=== PATIENT | female | born 1975 | race Caucasian/White ===

== ENCOUNTER 2016-09-07 14:19 | Emergency (ER) | payer SELFPAY ==
--- NOTE | 2016-09-07 16:10 | RAD ---
Indication: Right ring finger. 3 views of the right ring finger demonstrates no fracture. No other bone or joint abnormality is identified. Soft tissue defect is noted on the dorsum of the proximal interphalangeal joint. No foreign body is identified. IMPRESSION: No fracture of the right ring finger is noted although soft tissue swelling is noted at the proximal interphalangeal joint.
[2016-09-07] MEDS ORDERED: ceFAZolin VIAL(*) 1 GM in NS 0.9% 50 ML* 50 ML IVPB ONE (16:44)
[2016-09-07] MEDS ORDERED: Tetan/Diph/Pertus SYR(Tdap)* 0.5 ML SYR(BOOSTRIX) use SYR IM ONE (16:46)
[2016-09-07] MEDS ORDERED: ceFAZolin VIAL(*) 1 GM VIAL ONE (16:51)
[2016-09-07 17:47] VITALS: BP 145/97
--- NOTE | 2016-09-07 17:57 | UC ---
Ravindra Forrest Aidan, scribed for Esperanza Delgado MD on 09/07/16 at 1654 . 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 The uncontaminated instrument went into the dorsum of her R 4th finger at 1400 today. Associated symptoms include some swelling. Pt states it "went in like butter" and almost went through and through. She can see the site on the palmar surface where it almost came through and through. During onset of the injury, she had some finger numbness that has subsided. Pt is unsure when her last tetanus shot was. - History Of Current Complaint Chief Complaint: UCHeadInjury Stated Complaint: HAND INJURY Time Seen by Provider: 09/07/16 15:42 Hx Obtained From: Patient Hx Last Menstrual Period: unknown ?: No Mechanism Of Injury: A clean, unused peesoreamer pierced the 4th finger (ring finger) on the right hand (see hpi). Onset/Duration: Sudden Onset, Lasting Hours, Still Present Severity Initially: Moderate Severity Currently: Moderate Pain Intensity: 6 Pain Scale Used: 0-10 Numeric Character Of Pain: Sharp Aggravating Factor(s): Other - nothing Alleviating: Nothing Associated Signs And Symptoms: Positive: Swelling, Bruising - palmar surface right 4th finger, Numbness/Tingling - that has subsided Related History: Dominant Hand Right - Risk Factors Compartment Syndrome Risk Factors: Pain - Allergies/Home Medications Allergies/Adverse Reactions: Allergies Allergy/AdvReac Type Severity Reaction Status Date / Time No Known Allergies Allergy Verified 03/05/16 11:22 Home Medications: Home Medications Acetaminophen [Eq Pain Reliever] 650 mg PO 09/07/16 [History] Escitalopram Oxalate [Lexapro 10 mg] 10 mg PO DAILY 09/07/16 [History Confirmed 09/07/16] PMH/Surg Hx/FS Hx/Imm Hx Previously Healthy: Yes - Surgical History Surgical History: Yes Surgery Procedure, Year, and Place: - Family History Known Family History: Positive: Hypertension - Social History Occupation: Employed Full-time - Dentist Lives: Alone Alcohol Use: Occasionally Substance Use Type: None Substance Use Comment - Amount & Last Used: Smoked cigarettes during , OB staff veterinarian and PCP are aware. Smoking Status (MU): Heavy Every Day Tobacco Smoker Type: Cigarettes Amount Used/How Often: daily Have You Smoked in the Last Year: Yes Household Exposure Type: Cigarettes - Immunization History Most Recent Influenza Vaccination: 02/26/16 Most Recent Tetanus Shot: unknown Most Recent Pneumonia Vaccination: none Review of Systems Constitutional: Negative Skin: Other - small puncture wound to the 4th finger on the right hand with associated swelling and pain Eyes: Negative ENT: Negative Respiratory: Negative Cardiovascular: Negative Gastrointestinal: Negative Genitourinary: Negative Motor: Negative Neurovascular: Negative Musculoskeletal: Arthralgia - finger pain at the 4th finger on the right hand Neurological: Negative Psychological: Negative All Other Systems Reviewed And Are Negative: Yes Physical Exam Triage Information Reviewed: Yes Appearance: Well-Appearing, Well-Nourished, Pain Distress Vital Signs: Initial Vital Signs Temp 98.3 F 09/07/16 14:24 Pulse 94 09/07/16 14:24 Resp 18 09/07/16 14:24 BP 132/88 09/07/16 14:24 Pulse Ox 98 09/07/16 14:24 Vital Signs Reviewed: Yes Eyes: Positive: Conjunctiva Clear ENT Exam: Normal ENT: Positive: Normal ENT inspection. Negative: Muffled/hoarse voice Neck: Positive: Supple Respiratory: Positive: Lungs clear, Normal breath sounds, No respiratory distress Cardiovascular: Positive: No Murmur, Pulses Normal, Brisk Capillary Refill, Other: - elevated blood pressure without diagnosis Musculoskeletal: Positive: Strength Intact, ROM Intact Neurological: Positive: Alert, Muscle Tone Normal Psychological Exam: Normal Skin Exam: Normal Skin: Positive: Other - puncture wound to right ring finger dorsum, distal to PIP, no red streaks, full ROM, no bony tenderness, neurovasc intact, soft tissue swelling. Diagnostics - Radiology FINGER X-RAY Xray Interpretation: No Acute Changes - IMPRESSION: No fracture of the right ring finger is noted although soft tissue swelling is noted at the proximal interphalangeal joint. Re-Evaluation - Re-Evaluation First Eval Re-Evaluation Time: 17:30 - On re-evaluation, it was clear that there were no side effects from the medication. Change: Unchanged Hand/Wrist Course/Dx - Course Course Of Treatment: 40 y/o female presents with a puncture wound to the 4th finger on the right hand. She has associated pain and swelling. Her blood pressure was 132/88, indicating slight hypertension. She will be informed and encouraged to seek follow up. Imaging reviewed. Her finger x-ray was negative. Pt was give IV kefzol, Tetanus update with TDAP, and prescribed Cephalexin. Pt will follow up with Dr. Overton, orthopedist. - Differential Dx/Diagnosis Differential Diagnosis/HQI/PQRI: Cellulitis, Foreign Body, Infection, Puncture Wound Provider Diagnoses: Puncture would to right 4th finger, Tetanus update with TDAP , tobacco use disorder, elevated blood pressure without diagnosis of HTN. - Physician Notifications Discussed Patient Care With: Maikel Overton - Orthopedic surgery Time Discussed With Above Provider: 16:48 - Dr. Delgado discussed the patient's care with Dr. Groves's answering service. At 1735, Dr. Rogers spoke with Dr. Delgado and agreed with treatment. He requests definite follow up on 2016. Instructed by Provider To: Have Pt Call For Appt. Discharge - Discharge Plan Condition: Stable Disposition: HOME Prescriptions: Cephalexin CAP* [Keflex 500 CAP*] 500 mg PO QID #40 cap Patient Education Materials: Diphtheria/Acellular Pertussis/Tetanus Vaccine ( By injection), Puncture Wound (ED) Referrals: Maikel Overton MD [Medical Doctor] - 4 Days (call tomorrow to arrange to be seen 09/11/16) Sweta Portillo MD [Primary Care Provider] - Additional Instructions: Your blood pressure was 132/88, which is slightly hypertensive. Recommended follow up with your primary care provider within 4 weeks for blood pressure monitoring and evaluation. Dr. Overton will see you on Sunday09/11/16. Call tomorrow to schedule that. See the orthopedist sooner, or go to the ER if you cannot flex or extend that 4th finger, or if you have red streaks up your arm. The documentation as recorded by the Ravindra pedroza Aidan accurately reflects the service I personally performed and the decisions made by , Esperanza Delgado MD.
== END 2016-09-07 17:55 | disposition home or self-care (01) ==
LOC: UCEAST 14:19
DX: S61.234A Puncture wound without foreign body of right ring finger without damage to nail, initial encounter (principal); W26.8XXA Contact with other sharp object(s), not elsewhere classified, initial encounter; Y93.9 Activity, unspecified; Y92.531 Health care provider office as the place of occurrence of the external cause; Y99.0 Civilian activity done for income or pay; R03.0 Elevated blood-pressure reading, without diagnosis of hypertension; Z23 Encounter for immunization; F17.210 Nicotine dependence, cigarettes, uncomplicated
CPT/HCPCS: 73140; 90471; 90715; 96365; 99212; G0463; J0690

== ENCOUNTER 2016-10-10 09:41 | Emergency (ER) | payer BC ==
[2016-10-10 09:47] VITALS: BP 179/96
[2016-10-10] MEDS ORDERED: cefTRIAXone VIAL(*) 1,000 MG VIAL IM ONE (10:26)
[2016-10-10] MEDS ORDERED: Lidocaine 1% MPF* 2 ML VIAL ONE (10:31)
--- NOTE | 2016-10-10 10:31 | UC ---
Dental HPI - HPI Summary HPI Summary: 40 female presents to with complaints of a dental abscess/infection that has been ongoing and worsening over the past couple of days. 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 Thinks the infection is spreading into sinus. Has dental implant that needs to come out. Took left over augmentin today which did give some relief. No fever/chills. No other complaints besides some sinus congestion. Had a sinus infection untreated a couple of weeks ago and she thinks that worsened her dental complications causing this. - History of Current Complaint Chief Complaint: UCDentalProblem Stated Complaint: SINUS COMPLAINT Time Seen by Provider: 10/10/16 10:01 Hx Obtained From: Patient Hx Last Menstrual Period: 10/04/16 ?: No Onset/Duration: Sudden Onset, Lasting Days Severity: Moderate Pain Intensity: 4 Pain Scale Used: 0-10 Numeric Aggravating: Chewing Alleviating: Other (see comments) - standing due to gravity and augmentin x 1 dose Related History: Previous Dental Care on Same Tooth - Allergies/Home Medications Allergies/Adverse Reactions: Allergies Allergy/AdvReac Type Severity Reaction Status Date / Time No Known Allergies Allergy Verified 10/10/16 09:47 Home Medications: Home Medications Amoxicillin/Clavulanate TAB* [Augmentin TAB 875*] 1 tab PO BID 10/10/16 [ History Confirmed 10/10/16] Gabapentin CAP(*) [Neurontin 100 mg CAP(*)] 1 tab PO DAILY 10/10/16 [History Confirmed 10/10/16] PMH/Surg Hx/FS Hx/Imm Hx - Additional Past Medical History Additional PMH: Denies HTN, DM and asthma - Surgical History Surgical History: Yes Surgery Procedure, Year, and Place: - Family History Known Family History: Positive: None, Hypertension Family History: R & n/C - Social History Alcohol Use: Occasionally Substance Use Type: None Substance Use Comment - Amount & Last Used: Smoked cigarettes during , OB staff trainer and PCP are aware. Smoking Status (MU): Heavy Every Day Tobacco Smoker Type: Cigarettes Amount Used/How Often: 1ppd Have You Smoked in the Last Year: Yes Household Exposure Type: Cigarettes - Immunization History Most Recent Influenza Vaccination: 02/26/16 Most Recent Tetanus Shot: unknown Most Recent Pneumonia Vaccination: none Review of Systems Constitutional: Negative Skin: Negative ENT: Dental Pain - swelling, Sinus Congestion Respiratory: Negative Cardiovascular: Negative All Other Systems Reviewed And Are Negative: Yes Physical Exam Triage Information Reviewed: Yes Appearance: Well-Appearing, No Pain Distress, Well-Nourished Vital Signs: Initial Vital Signs Temp 98.1 F 10/10/16 09:42 Pulse 95 10/10/16 09:42 Resp 14 10/10/16 09:42 BP 179/96 10/10/16 09:42 Pulse Ox 100 10/10/16 09:42 elevated BP, re-taken. states her BP is always this high when at doctors. Vital Signs Reviewed: Yes Eyes: Positive: Conjunctiva Clear ENT: Positive: Hearing grossly normal, Pharynx normal, Nasal congestion, TMs normal. Negative: Tonsillar swelling, Tonsillar exudate, Trismus, Muffled/ hoarse voice Dental: Positive: Percussion Tenderness @ - maxillary b/l worse on right, Dental Fracture @, Abscess @ - right upper molar swelling in cheek, dental implant noted, tender to touch warm, no specific palpable abscess noted, Cervical Lymphadenopathy Neck: Positive: Supple, Nontender Respiratory: Positive: Chest non-tender, Lungs clear, Normal breath sounds, No respiratory distress, No accessory muscle use Cardiovascular: Positive: RRR, No Murmur, Pulses Normal Musculoskeletal: Positive: Strength Intact, ROM Intact Neurological: Positive: Alert Psychological: Positive: Normal Response To Family, Age Appropriate Behavior Skin Exam: Normal Dental Complaint Course/Dx - Course Course Of Treatment: did not want pain management at this time. 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 Given IM ceftriaxone and augmentin to take at home. aware of worsening signs and symptoms. have dental implant removed on sunday. Follow up. cool compresses, NSAIDs. - Differential Dx/Diagnosis Differential Diagnosis/Dx: Dental Abscess, Dental Caries, Fractured Tooth, Pharyngitis, Other - sinusitis Provider Diagnoses: dental abscess, dental infection, sinus infection Discharge - Discharge Plan Condition: Stable Disposition: HOME Prescriptions: Amoxicillin/Clavulanate TAB* [Augmentin TAB 875*] 875 mg PO BID #20 tab predniSONE TAB* [Deltasone TAB*] 20 mg PO DAILY #5 tab Patient Education Materials: Dental Abscess (ED), Sinusitis (ED) Referrals: Sweta Portillo MD [Primary Care Provider] - Additional Instructions: Take medications as prescribed starting tomorrow 10/11/16. Recommend taking prednisone in the morning to prevent insomnia. Advil/Aleve for pain and inflammation. Ice. Follow up with your dentist. Symptoms worsen or do not improve (fever/chills, increased pain/swelling) please return.
[2016-10-10] MEDS ORDERED: cefTRIAXone VIAL(*) 250 MG VIAL IM ONE (10:36)
== END 2016-10-10 10:55 | disposition home or self-care (01) ==
LOC: UCEAST 09:41
DX: K04.7 Periapical abscess without sinus (principal); J32.9 Chronic sinusitis, unspecified; Z72.0 Tobacco use
CPT/HCPCS: 96372; 99212; G0463; J0696

== ENCOUNTER 2017-06-11 20:09 | Emergency (ER) | payer BC, OTHER ==
--- OUTSIDE RECORDS SUMMARY | 2017-06-11 20:28 | XMS REPORT ---
:1975 External Reference #:[id number] Author Organization [facility] Address [address] [place] [address] Phone [phone] Care Team Providers Name Role Phone [facility] M[facility] Care Team Information Rn Telephonic Unavailable Payers Type Date Identification Numbers Payment Provider Subscriber Commercial Policy Number: [id number] / [employer] Nidhi Carcamo PayID: [id number] [address] [address] [place] [address] Problems Description No Information Family History Date Family Member(s) Problem(s) Comments General Hypertension General Alzheimer's Disease Father Hypertension Father 69 Mother Hypertension Mother 68 Children 1 Siblings None Social History Type Date Description Comments Work Status Full-Time Employment ETOH Use Drinks 2 Alcoholic Beverages Per Week Smoking Heavy tobacco smoker (more than 10 cigarettes/day) Recreational Drug Use Denies Drug Use Daily Caffeine Consumes on average 2 cups of regular coffee per day Allergies, Adverse Reactions, Alerts Date Description Reaction Status Severity Comments 05/21/2017 NKDA active Medications Medication Date Status Form Strength Qnty SIG Indications Ordering Provider Advil Active Tablets 200mg 2 by mouth M25.559 Ari, Ahmad 8 twice a day M., M.D. as needed M54.5 M79.7 Multivitamin Adults 05/21/2017 Active Tablets 1 by mouth M25.559 Ari, Ahmad every day M., M.D. M79.7 Neurontin 05/21/2017 Active Capsules 300mg 90caps 1 cap by M25.559 Giselle Chapmanmad mouth three M., M.D. times a day M54.5 M79.7 Meloxicam 05/21/2017 Active Tablets 7.5mg 60tabs take one M25.559 Ari , tablet by jossy Flores M.D. twice a day Escitalopram Active Tablets 10mg F41.9 Unknown Oxalate G47.00 Vital Signs Date Vital Result Comment 05/21/2017 BP Systolic 132 mmHg BP Diastolic 72 mmHg Height 61 inches 5'1" Weight 149.00 lb BMI (Body Mass Index) 28.2 kg/m2 Heart Rate 88 /min Respiratory Rate 18 /min Results Description No Information Procedures Date CPT Code Description Status 05/21/2017 05113 Visual Screening Test Completed 05/21/2017 69371 Audiometry, Bekesy, Screening Completed Encounters Type Date Location Provider CPT E/M Dx Office Visit 05/21/2017 8:00a [place] [facility] M.D. 65571 Z00.01 M25.559 M79.606 M54.5 M54.2 M25.569 M25.519 L20.9 J30.9 J44.9 F17.210 I10 E78.2 F41.9 G47.00 H52.4 Z12.31 M79.7 R51 Plan of Care 05/21/2017 - Saji Chapman M.D.Z00.01 Encounter for general adult medical exam w abnormal findingsComments:GOOD NUTRITION /EXERCISEDENTAL/ FLOSSING/ SELF CAREDROWNING/ SUN SAFETYSEAT BELT/ DRIVING SAFETYSPORT BIKE/ HELMET USESPORTS/ INJURY PREVENTIONVIOLENCE PREVENTION/ GUN SAFETYPARENTING ADVICE"SAFE AT HOME "SEX EDUCATION/ COUNSELINGBREAST/ TESTICULAR SELF EXAMEDUCATION GOALS/ ACTIVITIESLIMIT TV/ INTERNETUSETOBACCO/ ALCOHOL/ DRUGS/ INHALANTSPEER REFUSAL SKILLSSOCIAL INTERACTIONFAMILY FUNCTIONINGSELF CONTROLDEPRESSION/ ANXIETYNEXT APPOINTMENTYEARLY PHYSICAL WELLNESS EVALUATION F/U WITH OB /INTERVENTIONAL RADIOLOGIST FOR PAP RTC FOR FBWM25.559 Pain in unspecified hipNew Medication:Advil 200 mgMultivitamin AdultsNeurontin 300 mgMeloxicam 7.5 mgComments:EXERCISE/HEAT/MESSAGETYLENOL OR MOTRIN PRNAVOID HEAVY LIFTINGWT LOSSDUR YOZAYKTU06.606 Pain in leg, unspecifiedComments:TYLENOL OR MOTRIN PRN EXERCISE/HEAT/MESSAGE DUR GYAFOLIS62.5 Low back painNew Medication:Advil 200 mgNeurontin 300 mgComments: EXERCISE/HEAT /MESSAGEAVOID HEAVY LIFTING WT LOSSTYLENOL OR MOTRIN PRN DUR CHECKEDFollow up:1 kanjsB65.2 CervicalgiaComments:EXERCISE/HEAT /MESSAGEAVOID HEAVY LIFTING WT LOSSTYLENOL OR MOTRIN PRN DUR PDDBEIYK87.569 Pain in unspecified kneeComments:EXERCISE/HEAT /MESSAGEAVOID HEAVY LIFTING WT LOSSTYLENOL OR MOTRIN PRN DUR EFTYELPX00.519 Pain in unspecified shoulderComments:EXERCISE/HEAT /MESSAGE AVOID HEAVY LIFTINGTYLENOL OR MOTRIN PRN DUR MKVHDIKL25.9 Atopic dermatitis, unspecifiedComments:SKIN CARE INSTRUCTIONS LOTION OR BABY OIL 2-3 APPLICATION PER DAYUSE MOISTURIZING SOAPAVOID PROLONGED WATER EXPOSUREAVOID USING HOT WATER IN FAMQDTC16.9 Allergic rhinitis, unspecifiedComments:INCREASE PO FLUID USE ANTIHISTAMINE PRN SECOND HAND SMOKING AVOIDANCE SMOKING GUHBYPTPMW10.9 Chronic obstructive pulmonary disease, unspecifiedComments:INCREASE PO FLUIDRESTSMOKING WENUUOUIFW55.210 Nicotine dependence, cigarettes, uncomplicatedComments:SMOKING CESSATION COUNCELLING DISCUSSION RE: CESSATION OPTIONSPT INFORMED RE: NICOTINE PATCHES, CHANTIX, AND VCVBQZ90 Essential (primary) hypertensionComments:CHECK BP TIW ( PRN)DIET AND FLUID COUNSELING LOW SODIUM DIETWT LOSSF/U LAB SMOKING OVXOQAXZTZ99.2 Mixed hyperlipidemiaComments:DIET REVIEWED CONTINUE DIETWT LOSSF/ U LAB FBWF41.9 Anxiety disorder, unspecifiedComments:COUNCELLING AND REASSURANCE RELAXATION TECHNIQUES DISCUSSEDCOUNSELED RE: STRESSORS IN LIFE AVOID ALLENERGY/HIGH CAFFEINE DRINKS DUR KVVWFMTO03.00 Insomnia, unspecifiedComments:COUNCELLING AND REASSURANCE RELAXATION TECHNIQUES DISCUSSED COUNSELED RE: STRESSORS IN LIFE TYLENOLPM OR MOTRIN PM PRN DUR FPGQSEDE03.4 PresbyopiaComments:USE GLASSES/CONTACTSF/U WITH DRUKUIPWUNNAQA40.31 Encntr screen mammogram for malignant neoplasm of breastNew Xrays:Mammography Screening , Bilateral; 2-View Each BreastComments:F/U AFTER TESTM79.7 FibromyalgiaNew Medication:Advil 200 mgMultivitamin AdultsNeurontin 300 mgComments:EXERCISE/HEAT /MESSAGETYLENOL OR MOTRIN PRNF/U WITH REHUMATOLOGY PRNDUR [id number] HeadacheComments:TYLENOL OR MOTRIN PRN
[2017-06-11] MEDS ORDERED: Vancomycin(*) 1,000 MG in NS 0.9% 250 ML* 250 ML IVPB ONE (22:08)
[2017-06-11 22:25] LABS: Hematocrit 38 % (35-47); Hemoglobin 13.2 g/dl (12.0-16.0); Mean Corpuscular HGB Conc 35 g/dl (31-36); Mean Corpuscular Hemoglobin 35 pg (27-31); Mean Corpuscular Volume 102 fL (80-97); Mean Platelet Volume 7.8 um3 (7.4-10.4); Platelet Count 317 10^3/ul (150-450); Red Blood Count 3.74 10^6/ul (4.0-5.4); Red Cell Distribution Width 13 % (10.5-15); White Blood Count 15.4 10^3/ul (3.5-10.8)
[2017-06-11] MEDS ORDERED: Vancomycin per Pharmacy* NOTE FOLLOW UP PRN (22:36)
[2017-06-11 22:43] LABS: EGFR Non-African American 84.7 (>60)
[2017-06-11 22:53] LABS: ABS Basophils 0.1 10^3/ul (0-0.2); ABS Eosinophils 0.1 10^3/ul (0-0.6); ABS Monocytes 1.4 10^3/ul (0-0.8); ABS Neutrophils 11.9 10^3/ul (1.5-7.7); ABS Nucleated RBC 0 10^3/ul; Eosinophil % 0.9 % (0-6); Lymphocyte % 12.7 % (25-47); Nucleated Red Blood Cells % 0.1
[2017-06-11] MEDS ORDERED: oxyCODONE/Acetamin 5/325 MG* TAB PO ONE (23:03)
[2017-06-12] MEDS ORDERED: NS 0.9% 1000 ML* 1,000 ML IV ONE (00:45)
[2017-06-12] MEDS ORDERED: Ketorolac INJ* 30 MG/ML 1 ML VIAL IV PUSH ONE (00:45)
[2017-06-12 01:33] VITALS: BP 125/87
--- NOTE | 2017-06-12 07:50 | RAD ---
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 FINDINGS: The study is limited by the lack of intravenous contrast. This limits evaluation of the solid organs and vasculature. BONE DENSITY: Normal. BONES: There is no displaced fracture. JOINTS: There is no arthropathy. MUSCULATURE: Unremarkable ALIGNMENT: There is no dislocation. SOFT TISSUES: There is no appreciable inflammatory change of the perianal or perirectal fat. There is mild soft tissue thickening along the right side of the anus best seen on axial image 90. The pelvic organs are unremarkable for patient age and technique. OTHER FINDINGS: None. IMPRESSION: 1. THERE IS MILD SOFT TISSUE THICKENING ALONG THE RIGHT PERIRENAL REGION, WHICH MAY REPRESENT THE RESIDUAL OF THE PERIANAL FISTULA NOTED IN HISTORY, THOUGH THIS IS INCOMPLETELY EVALUATED ON THE CURRENT EXAMINATION, AND A SMALL ABSCESS MAY GIVE A SIMILAR APPEARANCE. RECOMMEND CORRELATION WITH DIRECT VISUALIZATION. 2. THERE IS NO INFLAMMATORY CHANGE OF THE PERIANAL OR PERIRECTAL FAT TO SUGGEST AN ACUTE INFLAMMATORY PROCESS.
--- NOTE | 2017-06-13 18:26 | ED ---
Lorenzo Forrest Angela, scribed for Param Davenport MD on 06/11/17 at 2235 . 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 She notes her swelling and pain was of gradual onset that is progressively worsening. Pt additionally reports low grade fevers at home. Denies any skin rupture or pus drainage. Denies radiation of pain any where else. Pt notes her pain is not relieved by Cipro taken at home. - History of Current Complaint Chief Complaint: EDRashSkinAbscess Stated Complaint: ABSCESS Hx Obtained From: Patient Hx Last Menstrual Period: 10/04/16 Onset/Duration: Started Days Ago, Still Present Skin Exposure Onset/Duration: Days Ago Timing: Lasting Days Current Severity: Severe Pain Intensity: 8 Pain Scale Used: 0-10 Numeric Skin Location: Other: - right perirectal area Character: Swelling, Pain, Redness Aggravating Symptom(s): Nothing Alleviating Symptom(s): Nothing Associated Signs & Symptoms: Fever - low grade - Allergy/Home Medications Allergies/Adverse Reactions: Allergies Allergy/AdvReac Type Severity Reaction Status Date / Time No Known Allergies Allergy Verified 06/11/17 21:09 PMH/Surg Hx/FS Hx/Imm Hx Musculoskeletal History: Reports: Other Musculoskeletal History - fibromyalgia Psychiatric History: Reports: Hx Anxiety, Hx Depression - Surgical History Surgery Procedure, Year, and Place: - Immunization History Date of Influenza Vaccine: has not recieved Infectious Disease History: No Infectious Disease History: Denies: Traveled Outside the [place] in Last 30 Days - Family History Known Family History: Positive: Hypertension - Social History Alcohol Use: Occasionally Hx Substance Use: No Substance Use Type: Reports: None Substance Use Comment - Amount & Last Used: Smoked cigarettes during , 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 Hx Tobacco Use: No Smoking Status (MU): Heavy Every Day Tobacco Smoker Type: Cigarettes Amount Used/How Often: 1ppd Have You Smoked in the Last Year: Yes Review of Systems Positive: Fever - low grade Eyes: Negative ENT: Negative Cardiovascular: Negative Gastrointestinal: Negative Genitourinary: Negative Skin: Other - perirectal swelling and pain Neurological: Negative All Other Systems Reviewed And Are Negative: Yes Physical Exam - Summary Physical Exam Summary: General: No acute distress Appearance: Well-appearing, Well-nourished Skin: Warm Eyes: Normal ENT: Normal Neck: Supple, nontender Respiratory: Clear to auscultation Cardiovascular: Normal S1, S2. No murmurs. Normal distal pulses in tibial and radial bilaterally. Abdomen: Soft, nontender : Right perirectal area swollen and tender without surrounding erythema. Approximately 3 to 4 cm round area of swelling, with surrounding scar tissue consistent with history of prior episodes. No visible fluid collection, no fluctuance. Musculoskeletal: Normal, Strength/ROM Intact Neurological: Normal, A&Ox3 Psychiatric: Normal Triage Information Reviewed: Yes Vital Signs On Initial Exam: Initial Vitals Temp Pulse Resp BP Pulse Ox 98.8 F 109 20 153/88 97 06/11/17 20:11 06/11/17 20:11 06/11/17 20:11 06/11/17 20:11 06/11/17 20:11 Vital Signs Reviewed: Yes Diagnostics - Vital Signs Vital Signs Temp Pulse Resp BP Pulse Ox 06/11/17 20:11 98.8 F 109 20 153/88 97 - Laboratory Lab Results: Lab Results 06/11/17 Range/Units 22:11 WBC 15.4 H (3.5-10.8) 10^3/ul RBC 3.74 L (4.0-5.4) 10^6/ul Hgb 13.2 (12.0-16.0) g/dl Hct 38 (35-47) % MCV 102 H (80-97) fL MCH 35 H (27-31) pg MCHC 35 (31-36) g/dl RDW 13 (10.5-15) % Plt Count 317 (150-450) 10^3/ul MPV 7.8 (7.4-10.4) um3 Neut % (Auto) Pending Lymph % (Auto) Pending Will % (Auto) Pending Eos % (Auto) Pending Baso % (Auto) Pending Absolute Neuts (auto) Pending Absolute Lymphs (auto) Pending Absolute Monos (auto) Pending Absolute Eos (auto) Pending Absolute Basos (auto) Pending Absolute Nucleated RBC Pending Nucleated RBC % Pending Result Diagrams: 06/11/17 22:11 06/11/17 22:11 Lab Statement: Any lab studies that have been ordered have been reviewed, and results considered in the medical decision making process. - CT Pelvis CT CT Interpretation: Positive (See Comments) - IMPRESSION: 1. Right labial/ perineal fullness could represent a Bartholin's dust cyst or abscess or other lesion, suboptimally characterized. Correlate with direct physical examination. Dr. Davenport has reviewed this radiology report. CT Interpretation Completed By: Radiologist Re-Evaluation - Re-Evaluation First Eval Re-Evaluation Time: 00:15 Comment: Pt refuses admission. She reports increased pain. Pt will be given Toradol for the pain. Course/Dx - Course Assessment/Plan: likely recurrent cellulitis/abscess of perirectal region based on history /physical. No evidence of bartholin's cyst, no vaginal wall involvement. Although I strongly recommended admission for this patient due to her symptoms and labs showing elevated white blood cell count, and tachycardia on her vital signs, patient refused admission and requests antibiotics for home. Area not likely to be ready for incision and drainage at this time based on appearance. I changed her antiobiotic regimen to cover for mrsa,and instructed pt and family to return for any worsening or concerning symptoms. Pt agrees to and understnads dc instructions. - Diagnoses Provider Diagnoses: Abscess Discharge - Sign-Out/Discharge Documenting (check all that apply): Discharge - discharge to home - Discharge Plan Condition: Stable Disposition: HOME Prescriptions: Cefdinir [Cefdinir 300 MG CAP] 300 mg PO BID #28 capsule Sulfamethox/Trimethoprim DS* [Bactrim DS 800/160 TAB*] 1 tab PO BID #28 tab Patient Education Materials: Abscess (ED) Referrals: Saji Chapman MD [Primary Care Provider] - Ronal Whiting MD [Medical Doctor] - Additional Instructions: PLEASE TAKE MEDICATIONS DIRECTED AND FINISH ALL MEDICATIONS PLEASE MAKE AN APPOINTMENT FIRST THING IN THE MORNING TO BE SEEN BY A GENERAL SURGEON WITHIN 1 WEEK PLEASE RETURN IMMEDIATELY TO THE ER IF YOU HAVE ANY WORSENING OR CONCERNING SYMPTOMS PLEASE MAKE AN APPOINTMENT TO BE SEEN BY YOUR PRIMARY CARE DOCTOR WITHIN 1 WEEK - Billing Disposition and Condition Condition: STABLE Disposition: HOME The documentation as recorded by the Lorenzo pedroza Angela accurately reflects the service I personally performed and the decisions made by me, Param Davenport MD.
== END 2017-06-12 01:25 | disposition home or self-care (01) ==
LOC: ED 20:09
DX: K61.1 Rectal abscess (principal); D72.829 Elevated white blood cell count, unspecified; R00.0 Tachycardia, unspecified; R50.9 Fever, unspecified; Z32.02 Encounter for pregnancy test, result negative; M79.7 Fibromyalgia; F41.9 Anxiety disorder, unspecified; F32.9 Major depressive disorder, single episode, unspecified; F17.210 Nicotine dependence, cigarettes, uncomplicated
CPT/HCPCS: 36415; 72192; 80053; 83605; 84702; 85025; 96365; 96375; 99283; A9270-GY; J1885; J3370

== ENCOUNTER 2019-03-04 10:35 | Emergency (ER) | payer BC ==
--- NOTE | 2019-03-04 10:50 | UC ---
Cardiac HPI - HPI Summary HPI Summary: 43-year-old female presents with complaints of intermittent "sharp, stabbing" midsternal chest pain for the past 4 days. States she has had approximately 6 episodes over the last 4 days. States the pain is sudden and lasts a few seconds then subsides. The most recent episode occurred just prior to arrival while she was driving to work. Pain is associated with some dizziness, shortness of breath, and fatigue. She is a heavy smoker reporting smoking 1-1/ 2 packs per day. Father has a history of KS at age 44. No personal or family history of blood clots. Denies fever, chills, diaphoresis, nausea, vomiting, palpitations, edema, or calf pain. - History of Current Complaint Chief Complaint: UCChestPain Stated Complaint: CHESTPAIN Time Seen by Provider: 03/04/19 10:39 Hx Obtained From: Patient Hx Last Menstrual Period: 01/31/19 Pain Intensity: 7 - Allergy/Home Medications Allergies/Adverse Reactions: Allergies Allergy/AdvReac Type Severity Reaction Status Date / Time No Known Allergies Allergy Verified 09/10/18 12:44 PMH/Surg Hx/FS Hx/Imm Hx Endocrine History: Diabetes - Gestational Psychological History: Anxiety - Surgical History Surgical History: Yes Surgery Procedure, Year, and Place: , TUBAL LIGATION, PERIANAL FISTULA REPAIR - Family History Known Family History: Positive: Cardiac Disease - Father [place] age 44, Hypertension Negative: Blood Disorder - Social History Occupation: Employed Full-time Lives: With Family Alcohol Use: Occasionally Substance Use Type: None Substance Use Comment - Amount & Last Used: Smoked cigarettes during , 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 Smoking Status (MU): Heavy Every Day Tobacco Smoker - 1 1/2 PPD Type: Cigarettes Amount Used/How Often: 1ppd Have You Smoked in the Last Year: Yes Household Exposure Type: Cigarettes - Immunization History Most Recent Influenza Vaccination: 02/26/16 Most Recent Tetanus Shot: unknown Most Recent Pneumonia Vaccination: none Review of Systems All Other Systems Reviewed And Are Negative: Yes Constitutional: Positive: Fatigue. Negative: Fever, Chills Eyes: Negative: Drainage, Eye Redness ENT: Negative: Sore Throat, Ear Ache, Nasal Discharge, Sinus Congestion, Sinus Pain/Tenderness Respiratory: Positive: Shortness Of Breath. Negative: Cough Cardiovascular: Positive: Chest Pain. Negative: Palpitations Gastrointestinal: Negative: Abdominal Pain, Vomiting, Nausea Genitourinary: Positive: Negative Musculoskeletal: Negative: Calf Tenderness Neurological: Positive: Negative Is Patient Immunocompromised?: No Physical Exam - Summary Physical Exam Summary: GENERAL APPEARANCE: Well developed, well nourished, alert and cooperative, and appears to be in no acute distress. EYES: Conjunctiva clear. No drainage. EARS: External auditory canals and tympanic membranes clear, hearing grossly intact. NOSE: No nasal discharge. THROAT: Pharynx normal. No tonsilar inflammation, swelling, exudate, or lesions. Uvula midline. NECK: Neck supple, non-tender without lymphadenopathy. CARDIAC: Normal S1 and S2. No S3, S4 or murmurs. Rhythm is regular. There is no peripheral edema, cyanosis or pallor. Extremities are warm and well perfused. Capillary refill is less than 2 seconds. Peripheral pulses intact. LUNGS: Chest wall non-tender. Clear to auscultation without rales, rhonchi, wheezing or diminished breath sounds. ABDOMEN: Positive bowel sounds. Soft, nondistended, nontender. No guarding or rebound. No masses or hepatosplenomegally. MUSKULOSKELETAL: ROM intact to all extremities. No joint erythema or tenderness. Normal muscular development. Normal gait. SKIN: Skin normal color, texture and turgor with no lesions or eruptions. Triage Information Reviewed: Yes Vital Signs: Initial Vital Signs Temp 97.4 F 03/04/19 10:37 Pulse 95 03/04/19 10:37 Resp 20 03/04/19 10:37 BP 165/90 03/04/19 10:37 Pulse Ox 97 03/04/19 10:37 Vital Signs Reviewed: Yes Diagnostics - EKG Cardiac Rate: NL Cardiac Rhythm: Sinus: Normal Ectopy: None ST Segment: Normal Summary of EKG Findings: NSR rate of 95. No GIA, ectopy, or T-wave abnormalities. No previous EKG for comparison. - Assessment/Plan Course Of Treatment: 43-year-old female presents with complaints of intermittent "sharp, stabbing" midsternal chest pain for the past 4 days. States she has had approximately 6 episodes over the last 4 days. States the pain is sudden and lasts a few seconds then subsides. The most recent episode occurred just prior to arrival while she was driving to work. Pain is associated with some dizziness, shortness of breath, and fatigue. She is a heavy smoker reporting smoking 1-1/ 2 packs per day. Father has a history of KS at age 44. No personal or family history of blood clots. Denies fever, chills, diaphoresis, nausea, vomiting, palpitations, edema, or calf pain. Afebrile. Hypertensive otherwise vital signs stable. Patient's exam was overall unremarkable. Twelve-lead EKG showed a normal sinus rhythm at a rate of [address] elevation, ectopy, or T-wave abnormalities. Reviewed the results with the patient. We discussed that although I have a low suspicion that her symptoms are cardiac origin I cannot fully rule this out at this time especially with her strong family history of KS at early age as well as her smoking history. We also discussed that I cannot fully rule out other causes such as PE therefore I am recommending that she be further evaluated in the emergency room at this time. Patient is agreeable to this and is electing to transport via private vehicle. - Differential Diagnoses - Chest Pain Differential Diagnosis/HQI/PQRI: Acute KS, ACS, Chest Wall, Lower Respiratory Infection, Pulmonary Embolism - Differential Diagnoses - Palpitations Differential Diagnosis/HQI/PQRI: Panic Disorder - Clinical Impression Provider Diagnosis: Chest pain Discharge ED - Sign-Out/Discharge Documenting (check all that apply): Patient Departure All imaging exams completed and their final reports reviewed: No Studies - Discharge Plan Condition: Stable Disposition: HOME-RECOMMEND TO ED Patient Education Materials: Chest Pain (ED) Referrals: Saji Chapman MD [Primary Care Provider] - Additional Instructions: The EKG performed in the clinic today was normal however I cannot fully rule out cardiac or pulmonary causes therefore I am recommending that you go to the emergency room at this time for further evaluation. Please go strait to the emergency room from here. - Billing Disposition and Condition Condition: STABLE Disposition: Home-Recommend to ED
[2019-03-04 10:57] VITALS: BP 165/90
== END 2019-03-04 11:08 | disposition home health service (06) ==
LOC: UCEAST 10:35
DX: R07.89 Other chest pain (principal); R42 Dizziness and giddiness; R53.83 Other fatigue; R06.02 Shortness of breath; E11.9 Type 2 diabetes mellitus without complications; I10 Essential (primary) hypertension; F17.210 Nicotine dependence, cigarettes, uncomplicated
CPT/HCPCS: 93005; 99212; G0463

== ENCOUNTER 2019-03-04 11:38 | Emergency (ER) | payer BC ==
[2019-03-04 12:27] LABS: ABS Basophils 0.1 10^3/ul (0-0.2); ABS Eosinophils 0.2 10^3/ul (0-0.6); ABS Lymphocytes 2.2 10^3/ul (1.0-4.8); ABS Monocytes 0.9 10^3/ul (0-0.8); Eosinophil % 1.6 %; Hematocrit 42 % (35-47); Hemoglobin 14.4 g/dL (12.0-16.0); Lymphocyte % 21.2 %; Mean Corpuscular HGB Conc 35 g/dL (31-36); Mean Corpuscular Hemoglobin 35 pg (27-31); Mean Corpuscular Volume 101 fL (80-97); Mean Platelet Volume 7.5 fL (7.4-10.4); Nucleated Red Blood Cells % 0.1; Platelet Count 388 10^3/uL (150-450); Red Blood Count 4.13 10^6 /uL (3.70-4.87); Red Cell Distribution Width 13 % (10-15); White Blood Count 10.4 10^3/uL (3.5-10.8)
[2019-03-04 12:45] LABS: Albumin 4.2 g/dL (3.2-5.2); Albumin/Globulin Ratio 1.7 (1-3); BUN/Creatinine Ratio 23.9 (8-20); Calcium 9.4 mg/dL (8.6-10.3); EGFR African American 115.7 (>60); EGFR Non-African American 95.6 (>60); Globulin 2.5 g/dL (2-4); Magnesium 1.7 mg/dL (1.9-2.7); Total Bilirubin 0.3 mg/dL (0.2-1.0); Total Protein 6.7 g/dL (6.4-8.9)
--- NOTE | 2019-03-04 12:58 | ED ---
Palpitations / Dysrhythmia - HPI Summary HPI Summary: Pt is a 43 y/o F presenting to the ED with a chief complaint of chest pain initially onset about 4-5 days ago. She states she experiences lightning bolt sensations of stabbing pain in her chest that come and go very quickly. She had her worst pain episode this morning, and states it takes her breath away sometimes. Pt states very brief and very infrequent. She denies prolonged shortness of breath, nausea, abd pain, or recent travel. She smokes 1.5ppd. No n /v. no recen travel. No h/o clots and notes Fhx of paternal [place] at age 44. She also denies thyroid issues. drinks 1 cup caffeine per day Pt's medications reviewed this visit. Pt only takes vitamins. - History of Current Complaint Chief Complaint: EDChestPainROMI Time Seen by Provider: 03/04/19 11:57 Hx Obtained From: Patient Onset/Duration: Sudden Onset, Resolved, Other - lasts seconds, very briefly Severity Initially: Moderate Severity Currently: None Aggravating: Nothing Alleviating: Nothing Associated Signs & Symptoms: Chest Pain - Allergy/Home Medications Allergies/Adverse Reactions: Allergies Allergy/AdvReac Type Severity Reaction Status Date / Time No Known Allergies Allergy Verified 03/04/19 11:48 Home Medications: Home Medications Calcium Carbonate [Calcium] 500 mg PO DAILY 03/04/19 [History Confirmed 03/04/19 ] Enzymes,Digestive [Enzymatic Digestant] 1 each PO DAILY 03/04/19 [History Confirmed 03/04/19] Magnesium Oxide TAB* [MagOx 400 TAB*] 400 mg PO DAILY 03/04/19 [History Confirmed 03/04/19] [place] Oil/[place]-3 Fatty Acids [[place] Oil] 1 cap PO DAILY 03/04/19 [History Confirmed 03/04/19] Turmeric 400 mg PO DAILY 03/04/19 [History Confirmed 03/04/19] PMH/Surg Hx/FS Hx/Imm Hx Previously Healthy: Yes Endocrine/Hematology History: Denies: Hx Diabetes Cardiovascular History: Reports: Hx Hypertension Denies: Hx Pacemaker/ICD Respiratory History: Denies: Hx Asthma Musculoskeletal History: Reports: Other Musculoskeletal History - fibromyalgia Sensory History: Denies: Hx Hearing Aid Psychiatric History: Reports: Hx Anxiety, Hx Depression Denies: Hx Panic Disorder - Surgical History Surgery Procedure, Year, and Place: , TUBAL LIGATION, PERIANAL FISTULA REPAIR - Immunization History Date of Influenza Vaccine: has not recieved Infectious Disease History: No Infectious Disease History: Denies: Traveled Outside the [place] in Last 30 Days - Family History Known Family History: Positive: Cardiac Disease - Father [place] age 44, Hypertension Negative: Blood Disorder - Social History Alcohol Use: Occasionally Hx Substance Use: No Substance Use Type: Reports: None Substance Use Comment - Amount & Last Used: Smoked cigarettes during , 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 Hx Tobacco Use: No Smoking Status (MU): Heavy Every Day Tobacco Smoker Type: Cigarettes Amount Used/How Often: 1ppd Have You Smoked in the Last Year: Yes Review of Systems Constitutional: Negative Positive: Chest Pain Negative: Shortness Of Breath Negative: Abdominal Pain, Nausea All Other Systems Reviewed And Are Negative: Yes Physical Exam - Summary Physical Exam Summary: Vital Signs Reviewed: Yes A+Ox3, no distress Eyes: Conjunctiva Clear, KIAN. EOM intact and full ENT: Hearing grossly normal TM x 2 clear, mmoist, uvula midline, no exudate, no erythema Neck: Positive: Supple Respiratory: Positive: No respiratory distress, No accessory muscle use + CTA throughout no w/r Cardiovascular: RRR nl s1, s2 no m/r CBT <2 sec, no bruits, no reproduced pain abd soft + BS nt/nd no guarding, no distension Musculoskeletal Exam: LUNA x 4 without difficulty Strength Intact, ROM Intact Neurological: Positive: Alert, + sensation throughout Psychological: Positive: Normal Response To examiner Skin: Positive: no rash, no ecchymosis Triage Information Reviewed: Yes Vital Signs On Initial Exam: Initial Vitals Temp Pulse Resp BP Pulse Ox 98.1 F 106 19 159/84 99 03/04/19 11:40 03/04/19 11:40 03/04/19 11:40 03/04/19 11:40 03/04/19 11:40 Vital Signs Reviewed: Yes Procedures - Sedation Patient Received Moderate/Deep Sedation with Procedure: No Diagnostics - Vital Signs Vital Signs Temp Pulse Resp BP Pulse Ox 03/04/19 12:42 85 03/04/19 12:31 83 23 133/83 97 03/04/19 12:01 93 22 139/98 95 03/04/19 12:00 22 03/04/19 11:40 98.1 F 106 19 159/84 99 - Laboratory Lab Results: Lab Results 03/04/19 03/04/19 03/04/19 Range/Units 12:10 12:10 12:10 WBC 10.4 (3.5-10.8) 10^3/uL RBC 4.13 (3.70-4.87) 10^6 /uL Hgb 14.4 (12.0-16.0) g/dL Hct 42 (35-47) % MCV 101 H (80-97) fL MCH 35 H (27-31) pg MCHC 35 (31-36) g/dL RDW 13 (10-15) % Plt Count 388 (150-450) 10^3/uL MPV 7.5 (7.4-10.4) fL Neut % (Auto) 67.7 % Lymph % (Auto) 21.2 % [place] % (Auto) 9.0 % Eos % (Auto) 1.6 % Baso % (Auto) 0.5 % Absolute Neuts (auto) 7.0 (1.5-7.7) 10^3/ul Absolute Lymphs (auto) 2.2 (1.0-4.8) 10^3/ul Absolute Monos (auto) 0.9 H (0-0.8) 10^3/ul Absolute Eos (auto) 0.2 (0-0.6) 10^3/ul Absolute Basos (auto) 0.1 (0-0.2) 10^3/ul Absolute Nucleated RBC 0.0 10^3/ul Nucleated RBC % 0.1 D-Dimer, Quantitative < 200 (Less Than 230) ng/mL Sodium 136 (135-145) mmol/L Potassium 4.0 (3.5-5.0) mmol/L Chloride 103 (101-111) mmol/L Carbon Dioxide 25 (22-32) mmol/L Anion Gap 8 (2-11) mmol/L BUN 16 (6-24) mg/dL Creatinine 0.67 (0.51-0.95) mg/dL Est GFR ( Amer) 115.7 (>60) Est GFR (Non-Af Amer) 95.6 (>60) BUN/Creatinine Ratio 23.9 H (8-20) Glucose 93 (70-100) mg/dL Calcium 9.4 (8.6-10.3) mg/dL Magnesium 1.7 L (1.9-2.7) mg/dL Total Bilirubin 0.30 (0.2-1.0) mg/dL AST 20 (13-39) U/L ALT 18 (7-52) U/L Alkaline Phosphatase 55 (34-104) U/L Total Creatine Kinase 137 (10-223) U/L Troponin I 0.00 (<0.03) ng/mL Total Protein 6.7 (6.4-8.9) g/dL Albumin 4.2 (3.2-5.2) g/dL Globulin 2.5 (2-4) g/dL Albumin/Globulin Ratio 1.7 (1-3) Lipase 38 (11.0-82.0) U/L TSH Pending Result Diagrams: 03/04/19 12:10 03/04/19 12:10 Lab Statement: Any lab studies that have been ordered have been reviewed, and results considered in the medical decision making process. - Radiology CXR Radiology Interpretation Completed By: Radiologist Summary of Radiographic Findings: No evidence for active cardiopulmonary disease is noted. ED physician has reviewed this report. Re-Evaluation - Re-Evaluation 1st re-eval Re-Evaluation Time: 13:36 Change: Unchanged Comment: Pt had a symptomatic PVC, found on monitor and shown to pt. Labs reviewed normal not concerning. Troponin 0 d-dimer less than 200 side thyroid is within normal. Recommend continue to avoid caffeine. Stay well hydrated. I also discussed tobacco cessation with the pt. Follow-up with P PCP and strict return precautions. Patient comfortable and in agreement with plan. Course/Dx - Course Course Of Treatment: The alcohol and drug health that Patient presents brooks the emergency department with relief episodes short bursts chest pain. Patient states a brief. Patient states it feels like she has to catch her breath but does not continue after the brief moment. Patient without history of similar. Patient smokes one half packs of cigarettes a day. Patient denies recent illness. Patient does not have any personal history of cardiac disease but her mother does. Patient states she's had a thyroid test was always been normal. On exam vital signs are stable. Patient well-appearing without any acute findings. I'm suspicious that these do not represent PVCs. We'll keep patient on the telemetry and serial symptoms occur. We'll check labs including magnesium and thyroid. We'll also check for lipase and right upper quadrant. We'll do a chest x-ray. Patient comfortable agreement with plan. Patient does have a primary care doctor, Dr. Chapman. BP slightly elevated - suspect related to visit - pt mildly anxious - recommend f/u with pcp - Diagnoses Provider Diagnoses: Palpitations, PVCs (premature ventricular contractions) Discharge ED - Sign-Out/Discharge Documenting (check all that apply): Patient Departure - Discharge Plan Condition: Stable Disposition: HOME Patient Education Materials: Heart Palpitations (ED), Premature Ventricular Contractions (ED) Referrals: Saji Chapman MD [Primary Care Provider] - Additional Instructions: - Stay well hydrated - drink plenty of non-alcoholic, non-caffinated beverages - work to decrease cigarette smoking - get plenty of restful sleep - consider to take a multi-vitamin - contact your doctor to schedule a follow-up appointment. Contact your doctor, call 911 or return with any change or worsening if your symptoms - chest pain, shortness of breath, lightheadedness, vomiting or any other concerns - Billing Disposition and Condition Condition: STABLE Disposition: Home - Attestation Statements Document Initiated by Scribe: Yes Documenting Scribe: Alexsandra Lee Provider For Whom Himanshu is Documenting (Include Credential): Obdulia Pack MD. Scribe Attestation: Alexsandra Forrest, scribed for Obdulia Pack MD. on 03/04/19 at 1443. Scribe Documentation Reviewed: Yes Provider Attestation: The documentation as recorded by the scrAlexsandra vang accurately reflects the service I personally performed and the decisions made by , Obdulia Pack MD. Status of Scribe Document: Viewed
[2019-03-04 14:01] LABS: TSH (Thyroid Stimulating Horm) 0.76 mcIU/mL (0.34-5.60)
[2019-03-04 14:46] VITALS: BP 150/87
== END 2019-03-04 14:45 | disposition home or self-care (01) ==
LOC: ED 11:38
DX: I49.3 Ventricular premature depolarization (principal); R07.9 Chest pain, unspecified; R00.2 Palpitations
CPT/HCPCS: 36415; 71045; 80053; 82550; 83690; 83735; 84443; 84484; 85025; 85379; 99282